=== PATIENT | male | born 1960 | race Caucasian/White ===

== ENCOUNTER 2016-11-11 10:16 | Emergency (ER) | payer OTHER ==
[2016-11-11 10:47] VITALS: BP 132/83
--- NOTE | 2016-11-11 11:41 | UC ---
Neck Pain HPI - HPI Summary HPI Summary: PATIENT PRESENTS TO WITH CC OF LEFT SIDED NECK PAIN WHICH RADIATES DOWN TO THE RIGHT ARM. HE ENDORSES PREVIOUS PAIN TO THE LOWER BACK. HE WAS SEEN ON IN THE AND XRAYS WERE PERFORMED. THESE SHOWED NO ABNORMALITIES WITH THE CERVICAL SPINE. HE STATES HE IS UNABLE TO ABDUCT THE SHOULDER AND PAIN IS WORSE IN THE MORNING UPON WAKENING. HE WAS ABLE TO SEE HIS PCP WHO PRESCRIBED OXYCODONE, IBUPROFEN AND PREDNISONE. 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 HE IS A SMOKER, BUT OTHERWISE HEALTHY. - History of Current Complaint Chief Complaint: UCBackPain Stated Complaint: BACK PAIN Time Seen by Provider: 11/11/16 11:25 Hx Obtained From: Patient Onset/Duration Of Injury/Symptoms: Weeks Mechanism Of Injury: No Known Trauma Timing: Constant Onset/Duration: Sudden Onset Severity: Moderate Pain Intensity: 8 Pain Scale Used: 0-10 Numeric Location: Discrete At: - RIGHT SHOULDER/NECK, Radiates To: - RIGHT ARM Character: Aching Aggravating Factors: Position Alleviating Factors: Heat Associated Signs & Symptoms: Positive: Negative Related History: Previous Neck Injury - Risk Factors Meningitis Risk Factors: Negative - Allergies/Home Medications Allergies/Adverse Reactions: Allergies Allergy/AdvReac Type Severity Reaction Status Date / Time Dust Mite Extract Allergy Sneezing Verified 11/11/16 10:48 Penicillins Allergy "Makes me Verified 11/11/16 10:48 feel like my throat is closing up." hazeluts Allergy "Makes me Uncoded 11/11/16 10:48 sweat, feel like my throat is closing, jittery." Home Medications: Home Medications predniSONE TAB* [Deltasone TAB*] 1 dose PO BID 11/11/16 [History Confirmed 11/11] PMH/Surg Hx/FS Hx/Imm Hx Previously Healthy: Yes - Surgical History Surgical History: Yes Surgery Procedure, Year, and Place: Right Knee, ~1979 - Family History Known Family History: Positive: None - Social History Occupation: Unemployed Lives: With Family Alcohol Use: Rare Substance Use Type: None, Prescribed Smoking Status (MU): Heavy Every Day Tobacco Smoker Type: Cigarettes Amount Used/How Often: 3/4 PPD Length of Time of Smoking/Using Tobacco: 36 Years Have You Smoked in the Last Year: Yes Household Exposure Type: Cigarettes - Immunization History Most Recent Influenza Vaccination: Not the 2015/2015 Season Review Of Systems Constitutional: Positive: Negative Skin: Positive: Negative Respiratory: Positive: Negative Cardiovascular: Positive: Negative Musculoskeletal: Positive: Arthralgia Neurological: Positive: Negative Psychological: Positive: Negative All Other Systems Reviewed And Are Negative: Yes Physical Exam Triage Information Reviewed: Yes Appearance: Well-Appearing, No Pain Distress, Well-Nourished Vital Signs: Initial Vital Signs Temp 98.5 F 11/11/16 10:37 Pulse 72 11/11/16 10:37 Resp 20 11/11/16 10:37 BP 132/83 11/11/16 10:37 Vital Signs Reviewed: Yes Eye Exam: Normal Eyes: Positive: Conjunctiva Clear Neck exam: Normal Neck: Positive: Supple, Nontender, No Lymphadenopathy Respiratory Exam: Normal Respiratory: Positive: Chest non-tender Cardiovascular Exam: Normal Cardiovascular: Positive: RRR Musculoskeletal: Positive: Strength Limited @, ROM Limited @ - UNABLE TO ABDUCT AT THE RIGHT SHOULDER Neurological Exam: Normal Neurological: Positive: Alert Psychological Exam: Normal Psychological: Positive: Normal Response To Family Skin Exam: Normal Neck Pain Course/Dx - Course Course Of Treatment: FOLLOW UP WITH PCP. FLEXERIL GIVEN FOR MUSCLE SPASMS. PATIENT VERY UPSET THAT PROVIDER WILL NOT TAKE HIM OUT OF WORK. I DID, HOWEVER GIVE HIM A NOTE FOR LIGHT DUTY TO WHICH HE IS UPSET. I HAVE EXPLAINED TO THE PATIENT, THIS IS SUBJECTIVE AND I FEEL THAT HE IS ABLE TO WORK, BUT HE IS UNABLE TO LIFT IF HE IS HAVING NECK PAIN. HE WILL NEED TO FOLLOW UP WITH ORTHO. - Differential Dx/Diagnosis Differential Dx/HQI/PQRI: Cervical Fracture, Sprain, Strain Provider Diagnoses: CERVICAL RADICULOPATHY Discharge - Discharge Plan Condition: Stable Disposition: HOME Prescriptions: Cyclobenzaprine TAB* [Flexeril TAB*] 10 mg PO BID PRN #16 tab MDD 2 PRN Reason: Pain Patient Education Materials: Cervical Radiculopathy (ED) Forms: *Work Release Referrals: Kenia Rincon MD [Primary Care Provider] -
== END 2016-11-11 11:42 | disposition home or self-care (01) ==
LOC: UCCORT 10:16
DX: M54.12 Radiculopathy, cervical region (principal); F17.210 Nicotine dependence, cigarettes, uncomplicated
CPT/HCPCS: 99212; G0463

== ENCOUNTER 2017-03-12 09:22 | Emergency (ER) | payer OTHER ==
[2017-03-12 09:42] VITALS: BP 129/80
--- NOTE | 2017-03-12 10:20 | UC ---
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 - History of Current Complaint Chief Complaint: UCUpperExtremity Stated Complaint: ARM PAIN Time Seen by Provider: 03/12/17 10:04 Hx Obtained From: Patient Onset/Duration: Sudden Onset Severity Initially: Moderate Severity Currently: Moderate Pain Scale Used: 0-10 Numeric - 5 Character: Sharp Aggravating Factor(s): Movement, Lifting, Flexion, Extension - Allergies/Home Medications Allergies/Adverse Reactions: Allergies Allergy/AdvReac Type Severity Reaction Status Date / Time Dust Mite Extract Allergy Sneezing Verified 03/12/17 09:42 Penicillins Allergy "Makes me Verified 03/12/17 09:42 feel like my throat is closing up." hazeluts Allergy "Makes me Uncoded 11/11/16 10:48 sweat, feel like my throat is closing, jittery." Home Medications: Home Medications Hydrocodone-Acetaminophen [Hydrocodone/Acetaminophen 10-325 mg] 1 tab PO Q4HR PRN 03/12/17 [History Confirmed 03/12/17] Tizanidine HCl [Zanaflex] 1 tab PO BID PRN 03/12/17 [History Confirmed 03/12/17] PMH/Surg Hx/FS Hx/Imm Hx Previously Healthy: Yes - Surgical History Surgical History: Yes Surgery Procedure, Year, and Place: Right Knee, ~1979 - Family History Known Family History: Positive: None - Social History Alcohol Use: Rare Substance Use Type: None, Prescribed Smoking Status (MU): Heavy Every Day Tobacco Smoker Type: Cigarettes Amount Used/How Often: 3/4 PPD Length of Time of Smoking/Using Tobacco: 36 Years Have You Smoked in the Last Year: Yes Household Exposure Type: Cigarettes - Immunization History Most Recent Influenza Vaccination: Not the Season Review of Systems Constitutional: Negative Skin: Negative Eyes: Negative ENT: Negative Respiratory: Negative Cardiovascular: Negative Gastrointestinal: Negative Genitourinary: Negative Motor: Negative Neurovascular: Negative Musculoskeletal: Other: - BILATERAL LATERAL ELBOW PAIN Neurological: Negative Psychological: Negative All Other Systems Reviewed And Are Negative: Yes Physical Exam Triage Information Reviewed: Yes Appearance: Well-Appearing Vital Signs: Initial Vital Signs Temp 36.6 C 03/12/17 09:36 Pulse 70 03/12/17 09:36 Resp 18 03/12/17 09:36 BP 129/80 03/12/17 09:36 Pulse Ox 100 03/12/17 09:36 Eye Exam: Normal ENT Exam: Normal Dental Exam: Normal Neck exam: Normal Neck: Positive: 1 Respiratory Exam: Normal Cardiovascular Exam: Normal Abdominal Exam: Normal Musculoskeletal: Positive: Other: - BILATERAL ELBOW PAIN Neurological Exam: Normal Psychological Exam: Normal Skin Exam: Normal Upper Extremity Course/Dx - Differential Dx/Diagnosis Provider Diagnoses: BILATERAL TENNIS ELBOW Discharge - Discharge Plan Condition: Stable Disposition: HOME Prescriptions: Meloxicam [Mobic] 7.5 mg PO BID PC #30 tab Patient Education Materials: Tennis Elbow (ED) Forms: *Work Release Referrals: Kenia Rincon MD [Primary Care Provider] - Malik Martinez MD [Medical Doctor] -
== END 2017-03-12 10:33 | disposition home or self-care (01) ==
LOC: UCEAST 09:22
DX: M77.11 Lateral epicondylitis, right elbow (principal); M77.12 Lateral epicondylitis, left elbow; F17.210 Nicotine dependence, cigarettes, uncomplicated
CPT/HCPCS: 99213; G0463